=== PATIENT | female | born 2000 | race Caucasian/White ===

== ENCOUNTER 2021-03-01 08:13 | Day surgery (SDC) | payer BC ==
[2021-02-27 15:22] VITALS: BMI 24.7
[2021-03-01] MEDS ORDERED: KETAMINE HCL 500 MG/10 ML VIAL ONE (09:30)
[2021-03-01 10:34] VITALS: BP 100/60; PULSE 78; TEMP 98
== END 2021-03-01 11:00 | disposition home or self-care (01) ==
LOC: FECT 08:13
PROVIDERS: ATTEND Psychiatry & Neurology Psychiatry
PROC: GZB4ZZZ Other Electroconvulsive Therapy (ICD-10-PCS; principal; 2021-03-01 09:45)
DX: F32.9 Major depressive disorder, single episode, unspecified (principal)
CPT/HCPCS: 81025; 90870; 94760; C9803; U0003; U0005

== ENCOUNTER 2021-03-06 08:18 | Day surgery (SDC) | payer BC ==
[2021-02-27 15:52] VITALS: BMI 24.7
[2021-03-06] MEDS ORDERED: KETAMINE HCL 500 MG/10 ML VIAL ONE (09:32)
[2021-03-06 11:16] VITALS: TEMP 97.8
[2021-03-06 11:30] VITALS: BP 100/61; PULSE 76
== END 2021-03-06 11:35 | disposition home or self-care (01) ==
LOC: FECT 08:18
PROVIDERS: ATTEND Psychiatry & Neurology Psychiatry
PROC: GZB4ZZZ Other Electroconvulsive Therapy (ICD-10-PCS; principal; 2021-03-06 09:30)
DX: F32.9 Major depressive disorder, single episode, unspecified (principal)
CPT/HCPCS: 81025; 90870; 94760; C9803; U0003; U0005

== ENCOUNTER 2021-03-09 06:35 | Day surgery (SDC) | payer BC ==
[2021-03-09 07:27] VITALS: BMI 24.7
[2021-03-09] MEDS ORDERED: KETAMINE HCL 500 MG/10 ML VIAL ONE (08:24)
[2021-03-09 09:33] VITALS: TEMP 98.1
[2021-03-09 09:53] VITALS: BP 102/62; PULSE 64
== END 2021-03-09 09:55 | disposition home or self-care (01) ==
LOC: FECT 06:35
PROVIDERS: ATTEND Psychiatry & Neurology Psychiatry
PROC: GZB4ZZZ Other Electroconvulsive Therapy (ICD-10-PCS; principal; 2021-03-09 08:30)
DX: F32.9 Major depressive disorder, single episode, unspecified (principal)
CPT/HCPCS: 90870; 94760

== ENCOUNTER 2021-03-10 06:12 | Day surgery (SDC) | payer BC ==
[2021-03-09 14:08] VITALS: BMI 24.7
[2021-03-10] MEDS ORDERED: KETAMINE HCL 500 MG/10 ML VIAL ONE (07:43)
[2021-03-10 08:53] VITALS: TEMP 97.9
[2021-03-10 09:04] VITALS: BP 115/71; PULSE 83
== END 2021-03-10 09:10 | disposition home or self-care (01) ==
LOC: FECT 06:12
PROVIDERS: ATTEND Psychiatry & Neurology Psychiatry
PROC: GZB4ZZZ Other Electroconvulsive Therapy (ICD-10-PCS; principal; 2021-03-10 08:00)
DX: F32.9 Major depressive disorder, single episode, unspecified (principal)
CPT/HCPCS: 81025; 90870; 94760; C9803; U0003; U0005

== ENCOUNTER 2021-03-13 06:36 | Day surgery (SDC) | payer BC ==
[2021-03-09 15:43] VITALS: BMI 24.7
[2021-03-13 09:04] VITALS: TEMP 98
[2021-03-13 09:53] VITALS: BP 118/70; PULSE 84
== END 2021-03-13 09:55 | disposition home or self-care (01) ==
LOC: FECT 06:36
PROVIDERS: ATTEND Psychiatry & Neurology Psychiatry
PROC: GZB4ZZZ Other Electroconvulsive Therapy (ICD-10-PCS; principal; 2021-03-13 08:30)
DX: F33.2 Major depressive disorder, recurrent severe without psychotic features (principal)
CPT/HCPCS: 90870; 94760; C9803; U0003; U0005

== ENCOUNTER 2021-03-16 06:30 | Day surgery (SDC) | payer BC ==
[2021-03-15 14:43] VITALS: BMI 24.7
[2021-03-16] MEDS ORDERED: PROPOFOL 20 ML ONE (08:23)
[2021-03-16] MEDS ORDERED: SUCCINYLCHOLINE CHLORIDE 200 MG/10 ML SYRINGE ONE (08:23)
[2021-03-16] MEDS ORDERED: KETAMINE HCL 500 MG/10 ML VIAL ONE (08:24)
[2021-03-16 09:19] VITALS: TEMP 98.1
[2021-03-16 10:39] VITALS: BP 121/73; PULSE 72
== END 2021-03-16 09:45 | disposition home or self-care (01) ==
LOC: FECT 06:30
PROVIDERS: ATTEND Psychiatry & Neurology Psychiatry
PROC: GZB4ZZZ Other Electroconvulsive Therapy (ICD-10-PCS; principal; 2021-03-16 08:00)
DX: F32.9 Major depressive disorder, single episode, unspecified (principal)
CPT/HCPCS: 81025; 90870; 94760

== ENCOUNTER 2021-03-17 06:12 | Day surgery (SDC) | payer BC ==
[2021-03-16 12:03] VITALS: BMI 24.7
[2021-03-17] MEDS ORDERED: KETAMINE HCL 500 MG/10 ML VIAL ONE ×2 (07:55→07:59)
[2021-03-17 08:54] VITALS: TEMP 98.2
[2021-03-17 09:09] VITALS: BP 118/72; PULSE 68
== END 2021-03-17 09:11 | disposition home or self-care (01) ==
LOC: FECT 06:12
PROVIDERS: ATTEND Psychiatry & Neurology Psychiatry
PROC: GZB4ZZZ Other Electroconvulsive Therapy (ICD-10-PCS; principal; 2021-03-17 07:30)
DX: F32.9 Major depressive disorder, single episode, unspecified (principal)
CPT/HCPCS: 81025; 90870; 94760; C9803; U0003; U0005

== ENCOUNTER 2021-03-20 06:54 | Day surgery (SDC) | payer BC ==
[2021-03-17 08:36] VITALS: BMI 24.7
[2021-03-20] MEDS ORDERED: KETAMINE HCL 500 MG/10 ML VIAL ONE (09:08)
[2021-03-20 10:26] VITALS: TEMP 98
[2021-03-20 10:42] VITALS: BP 112/64; PULSE 79
== END 2021-03-20 10:45 | disposition home or self-care (01) ==
LOC: FECT 06:54
PROVIDERS: ATTEND Psychiatry & Neurology Psychiatry
PROC: GZB4ZZZ Other Electroconvulsive Therapy (ICD-10-PCS; principal; 2021-03-20 09:00)
DX: F32.9 Major depressive disorder, single episode, unspecified (principal)
CPT/HCPCS: 90870; 94760; C9803; U0003; U0005

== ENCOUNTER 2021-03-23 07:29 | Day surgery (SDC) | payer BC ==
[2021-03-22 08:57] VITALS: BMI 24.7
[2021-03-23] MEDS ORDERED: KETAMINE HCL 500 MG/10 ML VIAL ONE (09:40)
[2021-03-23 10:53] VITALS: TEMP 18
[2021-03-23 10:54] VITALS: BP 121/72; PULSE 72
== END 2021-03-23 10:56 | disposition home or self-care (01) ==
LOC: FECT 07:29
PROVIDERS: ATTEND Psychiatry & Neurology Psychiatry
PROC: GZB4ZZZ Other Electroconvulsive Therapy (ICD-10-PCS; principal; 2021-03-23 09:30)
DX: F32.9 Major depressive disorder, single episode, unspecified (principal)
CPT/HCPCS: 84703; 90870; 94760

== ENCOUNTER 2021-03-24 06:43 | Day surgery (SDC) | payer BC ==
[2021-03-22 15:47] VITALS: BMI 24.7
[2021-03-24] MEDS ORDERED: KETAMINE HCL 500 MG/10 ML VIAL ONE (07:29)
[2021-03-24] MEDS ORDERED: SUCCINYLCHOLINE CHLORIDE 200 MG/10 ML SYRINGE ONE (07:34)
[2021-03-24] MEDS ORDERED: PROPOFOL 20 ML ONE (07:34)
[2021-03-24 08:24] VITALS: TEMP 97.9
[2021-03-24 08:47] VITALS: BP 110/74; PULSE 78
== END 2021-03-24 09:19 | disposition home or self-care (01) ==
LOC: FECT 06:43
PROVIDERS: ATTEND Psychiatry & Neurology Psychiatry
PROC: GZB4ZZZ Other Electroconvulsive Therapy (ICD-10-PCS; principal; 2021-03-24 07:30)
DX: F32.9 Major depressive disorder, single episode, unspecified (principal)
CPT/HCPCS: 90870; 94760; C9803; U0003; U0005

== ENCOUNTER 2021-03-27 06:50 | Day surgery (SDC) | payer BC ==
[2021-03-22 15:51] VITALS: BMI 24.7
[2021-03-27] MEDS ORDERED: KETAMINE HCL 200 MG/20 ML VIAL ONE (08:29)
[2021-03-27 09:21] VITALS: TEMP 98.2
[2021-03-27 09:39] VITALS: BP 118/66; PULSE 64
== END 2021-03-27 09:40 | disposition home or self-care (01) ==
LOC: FECT 06:50
PROVIDERS: ATTEND Psychiatry & Neurology Psychiatry
PROC: GZB4ZZZ Other Electroconvulsive Therapy (ICD-10-PCS; principal; 2021-03-27 08:30)
DX: F33.2 Major depressive disorder, recurrent severe without psychotic features (principal)
CPT/HCPCS: 81025; 90870; 94760

== ENCOUNTER 2021-03-29 06:14 | Day surgery (SDC) | payer BC ==
[2021-03-27 11:32] VITALS: BMI 24.7
[2021-03-29] MEDS ORDERED: PROPOFOL 20 ML ONE (08:09)
[2021-03-29] MEDS ORDERED: SUCCINYLCHOLINE CHLORIDE 200 MG/10 ML SYRINGE ONE (08:09)
[2021-03-29] MEDS ORDERED: KETAMINE HCL 200 MG/20 ML VIAL ONE (08:10)
[2021-03-29 08:31] VITALS: TEMP 97
[2021-03-29 09:12] VITALS: BP 110/77; PULSE 61
== END 2021-03-29 09:15 | disposition home or self-care (01) ==
LOC: FECT 06:14
PROVIDERS: ATTEND Psychiatry & Neurology Psychiatry
PROC: GZB4ZZZ Other Electroconvulsive Therapy (ICD-10-PCS; principal; 2021-03-29 08:00)
DX: F32.9 Major depressive disorder, single episode, unspecified (principal)
CPT/HCPCS: 90870; 94760; C9803; U0003; U0005

== ENCOUNTER 2021-04-03 06:57 | Day surgery (SDC) | payer BC ==
[2021-03-27 12:12] VITALS: BMI 24.7
[2021-04-03] MEDS ORDERED: KETAMINE HCL 500 MG/10 ML VIAL ONE (08:54)
[2021-04-03 10:02] VITALS: TEMP 97.8
[2021-04-03 10:54] VITALS: BP 112/61; PULSE 81
== END 2021-04-03 10:25 | disposition home or self-care (01) ==
LOC: FECT 06:57
PROVIDERS: ATTEND Psychiatry & Neurology Psychiatry
PROC: GZB4ZZZ Other Electroconvulsive Therapy (ICD-10-PCS; principal; 2021-04-03 09:00)
DX: F33.2 Major depressive disorder, recurrent severe without psychotic features (principal)
CPT/HCPCS: 81025; 90870; 94760; C9803; U0003; U0005

== ENCOUNTER 2021-04-06 06:09 | Day surgery (SDC) | payer BC ==
[2021-03-29 10:06] VITALS: BMI 24.7
[2021-04-06] MEDS ORDERED: KETOROLAC TROMETHAMINE 30 MG/1 ML VIAL ONE (08:03)
[2021-04-06] MEDS ORDERED: DEXAMETHASONE SOD PHOSPHATE 4 MG/1 ML VIAL ONE (08:03)
[2021-04-06] MEDS ORDERED: ONDANSETRON 4 MG/2 ML VIAL ONE (08:03)
[2021-04-06] MEDS ORDERED: KETAMINE HCL 500 MG/10 ML VIAL ONE (08:04)
[2021-04-06] MEDS ORDERED: PROPOFOL 20 ML ONE (08:04)
[2021-04-06] MEDS ORDERED: SUCCINYLCHOLINE CHLORIDE 200 MG/10 ML SYRINGE ONE (08:20)
[2021-04-06 08:48] VITALS: TEMP 98.1
[2021-04-06 09:34] VITALS: BP 112/66; PULSE 68
[2021-04-07 21:06] LABS: SARS-CoV-2 NAA Not Detected (Not Detected)
== END 2021-04-06 09:35 | disposition home or self-care (01) ==
LOC: FECT 06:09
PROVIDERS: ATTEND Psychiatry & Neurology Psychiatry
PROC: GZB4ZZZ Other Electroconvulsive Therapy (ICD-10-PCS; principal; 2021-04-06 08:00)
DX: F32.9 Major depressive disorder, single episode, unspecified (principal)
CPT/HCPCS: 90870; 94760; C9803; U0003; U0005

== ENCOUNTER 2021-04-10 05:57 | Day surgery (SDC) | payer BC ==
[2021-04-03 15:34] VITALS: BMI 24.7
[2021-04-10] MEDS ORDERED: KETAMINE HCL 200 MG/20 ML VIAL ONE (08:48)
[2021-04-10 09:51] VITALS: TEMP 97.3
[2021-04-10 09:52] VITALS: BP 112/71; PULSE 75
[2021-04-11 14:13] LABS: SARS-CoV-2 NAA Not Detected (Not Detected)
== END 2021-04-10 09:54 | disposition home or self-care (01) ==
LOC: FECT 05:57
PROVIDERS: ATTEND Psychiatry & Neurology Psychiatry
PROC: GZB4ZZZ Other Electroconvulsive Therapy (ICD-10-PCS; principal; 2021-04-10 08:00)
DX: F32.9 Major depressive disorder, single episode, unspecified (principal)
CPT/HCPCS: 81025; 90870; 94760; C9803; U0003; U0005

== ENCOUNTER 2021-04-13 06:27 | Day surgery (SDC) | payer BC ==
[2021-04-10 16:26] VITALS: BMI 24.7
[2021-04-13] MEDS ORDERED: KETAMINE HCL 500 MG/10 ML VIAL ONE (08:09)
[2021-04-13 09:10] VITALS: TEMP 98
[2021-04-13 09:31] VITALS: BP 101/69; PULSE 84
== END 2021-04-13 09:30 | disposition home or self-care (01) ==
LOC: FECT 06:27
PROVIDERS: ATTEND Psychiatry & Neurology Psychiatry
PROC: GZB4ZZZ Other Electroconvulsive Therapy (ICD-10-PCS; principal; 2021-04-13 08:30)
DX: F32.9 Major depressive disorder, single episode, unspecified (principal)
CPT/HCPCS: 90870; 94760

== ENCOUNTER 2021-04-17 06:25 | Day surgery (SDC) | payer BC ==
[2021-04-14 07:56] VITALS: BMI 24.7
[2021-04-17] MEDS ORDERED: KETAMINE HCL 500 MG/10 ML VIAL ONE (08:07)
[2021-04-17 09:14] VITALS: BP 109/66; PULSE 92; TEMP 20
[2021-04-18 14:08] LABS: SARS-CoV-2 NAA Not Detected (Not Detected)
== END 2021-04-17 09:30 | disposition home or self-care (01) ==
LOC: FECT 06:25
PROVIDERS: ATTEND Psychiatry & Neurology Psychiatry
PROC: GZB4ZZZ Other Electroconvulsive Therapy (ICD-10-PCS; principal; 2021-04-17 08:30)
DX: F33.2 Major depressive disorder, recurrent severe without psychotic features (principal)
CPT/HCPCS: 81025; 90870; 94760; C9803-CS; U0003; U0005

== ENCOUNTER 2021-04-20 06:25 | Day surgery (SDC) | payer BC ==
[2021-04-14 07:59] VITALS: BMI 24.7
[2021-04-20] MEDS ORDERED: KETAMINE HCL 200 MG/20 ML VIAL ONE (08:02)
[2021-04-20 08:59] VITALS: TEMP 97.8
[2021-04-20 09:22] VITALS: BP 112/64; PULSE 70
== END 2021-04-20 09:24 | disposition home or self-care (01) ==
LOC: FECT 06:25
PROVIDERS: ATTEND Psychiatry & Neurology Psychiatry
PROC: GZB4ZZZ Other Electroconvulsive Therapy (ICD-10-PCS; principal; 2021-04-20 08:30)
DX: F32.9 Major depressive disorder, single episode, unspecified (principal)
CPT/HCPCS: 90870; 94760

== ENCOUNTER 2021-04-21 05:51 | Day surgery (SDC) | payer BC ==
[2021-04-14 08:02] VITALS: BMI 24.7
[2021-04-21] MEDS ORDERED: KETAMINE HCL 500 MG/10 ML VIAL ONE (07:47)
[2021-04-21] MEDS ORDERED: GLYCOPYRROLATE 0.2 MG/1 ML VIAL ONE (07:58)
[2021-04-21 08:57] VITALS: TEMP 97.2
[2021-04-21 09:10] VITALS: BP 113/65; PULSE 81
[2021-04-21] MEDS ORDERED: PROMETHAZINE HCL 25 MG/1 ML VIAL IVPUSH PRN (09:55)
[2021-04-21] MEDS ORDERED: ONDANSETRON 4 MG/2 ML VIAL IVPUSH PRN (09:55)
[2021-04-21] MEDS ORDERED: ACETAMINOPHEN 325 MG TABLET (FP) PO PRN (09:55)
[2021-04-21] MEDS ORDERED: LACTATED RINGERS SOLUTION 1,000 ML IV SCH (10:00)
[2021-04-22 16:08] LABS: SARS-CoV-2 NAA Not Detected (Not Detected)
== END 2021-04-21 09:15 | disposition home or self-care (01) ==
LOC: FECT 05:51
PROVIDERS: ATTEND Psychiatry & Neurology Psychiatry
PROC: GZB4ZZZ Other Electroconvulsive Therapy (ICD-10-PCS; principal; 2021-04-21 08:00)
DX: F32.9 Major depressive disorder, single episode, unspecified (principal)
CPT/HCPCS: 81025; 90870; 94760; C9803; U0003; U0005

== ENCOUNTER 2021-04-25 06:24 | Day surgery (SDC) | payer BC ==
[2021-04-19 08:35] VITALS: BMI 24.7
[2021-04-25] MEDS ORDERED: KETAMINE HCL 500 MG/10 ML VIAL ONE (08:03)
[2021-04-25 08:45] VITALS: TEMP 97.5
[2021-04-25 09:25] VITALS: BP 118/69; PULSE 85
[2021-04-26 11:08] LABS: SARS-CoV-2 NAA Not Detected (Not Detected)
== END 2021-04-25 09:26 | disposition home or self-care (01) ==
LOC: FECT 06:24
PROVIDERS: ATTEND Psychiatry & Neurology Psychiatry
PROC: GZB4ZZZ Other Electroconvulsive Therapy (ICD-10-PCS; principal; 2021-04-25 08:00)
DX: F33.2 Major depressive disorder, recurrent severe without psychotic features (principal)
CPT/HCPCS: 81025; 90870; 94760; C9803; U0003; U0005

== ENCOUNTER 2021-04-28 06:00 | Day surgery (SDC) | payer BC ==
[2021-04-25 17:14] VITALS: BMI 24.7
[2021-04-28] MEDS ORDERED: KETAMINE HCL 500 MG/10 ML VIAL ONE (07:25)
[2021-04-28 07:56] VITALS: TEMP 97.8
[2021-04-28 09:00] VITALS: BP 112/64; PULSE 72
== END 2021-04-28 09:04 | disposition home or self-care (01) ==
LOC: FECT 06:00
PROVIDERS: ATTEND Psychiatry & Neurology Psychiatry
PROC: GZB4ZZZ Other Electroconvulsive Therapy (ICD-10-PCS; principal; 2021-04-28 08:00)
DX: F33.2 Major depressive disorder, recurrent severe without psychotic features (principal)
CPT/HCPCS: 90870; 94760

== ENCOUNTER 2021-05-04 06:03 | Day surgery (SDC) | payer BC ==
[2021-05-01 14:44] VITALS: BMI 24.7
[2021-05-04] MEDS ORDERED: KETAMINE HCL 500 MG/10 ML VIAL ONE (07:30)
[2021-05-04 07:58] VITALS: TEMP 97.5
[2021-05-04 08:35] VITALS: BP 105/60; PULSE 87
== END 2021-05-04 08:45 | disposition home or self-care (01) ==
LOC: FECT 06:03
PROVIDERS: ATTEND Psychiatry & Neurology Psychiatry
PROC: GZB4ZZZ Other Electroconvulsive Therapy (ICD-10-PCS; principal; 2021-05-04 07:30)
DX: F32.9 Major depressive disorder, single episode, unspecified (principal)
CPT/HCPCS: 81025; 90870; 94760

== ENCOUNTER 2021-05-11 06:12 | Day surgery (SDC) | payer BC ==
[2021-04-14 07:53] VITALS: BMI 24.7
[2021-05-11 09:07] VITALS: TEMP 97.9
[2021-05-11 09:37] VITALS: BP 111/67; PULSE 81
== END 2021-05-11 09:25 | disposition home or self-care (01) ==
LOC: FECT 06:12
PROVIDERS: ATTEND Psychiatry & Neurology Psychiatry
PROC: GZB4ZZZ Other Electroconvulsive Therapy (ICD-10-PCS; principal; 2021-05-11 08:00)
DX: F32.9 Major depressive disorder, single episode, unspecified (principal)
CPT/HCPCS: 81025; 90870; 94760

== ENCOUNTER 2021-05-18 06:08 | Day surgery (SDC) | payer BC ==
[2021-05-16 16:33] VITALS: BMI 24.7
[2021-05-18] MEDS ORDERED: KETAMINE HCL 500 MG/10 ML VIAL ONE (07:17)
[2021-05-18 08:12] VITALS: BP 110/67; PULSE 86; TEMP 97
== END 2021-05-18 08:25 | disposition home or self-care (01) ==
LOC: FECT 06:08
PROVIDERS: ATTEND Psychiatry & Neurology Psychiatry
PROC: GZB4ZZZ Other Electroconvulsive Therapy (ICD-10-PCS; principal; 2021-05-18 07:30)
DX: F32.9 Major depressive disorder, single episode, unspecified (principal)
CPT/HCPCS: 81025; 90870; 94760

== ENCOUNTER 2021-05-25 08:02 | Day surgery (SDC) | payer BC ==
[2021-05-23 08:17] VITALS: BMI 24.7
[2021-05-25] MEDS ORDERED: KETAMINE HCL 500 MG/10 ML VIAL ONE (09:18)
[2021-05-25 12:18] VITALS: PULSE 82; TEMP 97.8
[2021-05-25 12:20] VITALS: BP 120/70
== END 2021-05-25 10:30 | disposition home or self-care (01) ==
LOC: FECT 08:02
PROVIDERS: ATTEND Psychiatry & Neurology Psychiatry
PROC: GZB4ZZZ Other Electroconvulsive Therapy (ICD-10-PCS; principal; 2021-05-25 09:30)
DX: F32.9 Major depressive disorder, single episode, unspecified (principal)
CPT/HCPCS: 84703; 90870; 94760

== ENCOUNTER 2021-06-01 05:50 | Day surgery (SDC) | payer BC ==
[2021-05-26 17:14] VITALS: BMI 24.7
[2021-06-01] MEDS ORDERED: KETAMINE HCL 500 MG/10 ML VIAL ONE (07:27)
[2021-06-01 08:43] VITALS: TEMP 97.8
[2021-06-01 08:47] VITALS: BP 110/61; PULSE 71
== END 2021-06-01 08:45 | disposition home or self-care (01) ==
LOC: FASU 05:50
PROVIDERS: ATTEND Psychiatry & Neurology Psychiatry
PROC: GZB4ZZZ Other Electroconvulsive Therapy (ICD-10-PCS; principal; 2021-06-01 07:41)
DX: F33.2 Major depressive disorder, recurrent severe without psychotic features (principal)
CPT/HCPCS: 81025; 90870; 94760

== ENCOUNTER 2021-06-15 06:30 | Day surgery (SDC) | payer BC ==
[2021-06-02 17:18] VITALS: BMI 24.7
[2021-06-15] MEDS ORDERED: KETAMINE HCL 500 MG/10 ML VIAL ONE (07:53)
[2021-06-15 09:25] VITALS: TEMP 98.7
[2021-06-15 09:27] VITALS: BP 110/55; PULSE 75
== END 2021-06-15 09:25 | disposition home or self-care (01) ==
LOC: FECT 06:30
PROVIDERS: ATTEND Psychiatry & Neurology Psychiatry
PROC: GZB4ZZZ Other Electroconvulsive Therapy (ICD-10-PCS; principal; 2021-06-15 08:25)
DX: F32.9 Major depressive disorder, single episode, unspecified (principal)
CPT/HCPCS: 81025; 90870; 94760

== ENCOUNTER 2021-06-22 06:05 | Day surgery (SDC) | payer BC ==
[2021-06-16 07:30] VITALS: BMI 24.7
[2021-06-22] MEDS ORDERED: KETAMINE HCL 200 MG/20 ML VIAL ONE (08:00)
[2021-06-22 08:55] VITALS: TEMP 97.8
[2021-06-22 09:19] VITALS: BP 116/68; PULSE 70
== END 2021-06-22 09:19 | disposition home or self-care (01) ==
LOC: FECT 06:05
PROVIDERS: ATTEND Psychiatry & Neurology Psychiatry
PROC: GZB4ZZZ Other Electroconvulsive Therapy (ICD-10-PCS; principal; 2021-06-22 08:09)
DX: F32.9 Major depressive disorder, single episode, unspecified (principal)
CPT/HCPCS: 81025; 90870; 94760

== ENCOUNTER 2021-07-03 10:04 | Day surgery (SDC) | payer BC ==
[2021-06-26 18:11] VITALS: BMI 24.7
[2021-07-03] MEDS ORDERED: KETAMINE HCL 500 MG/10 ML VIAL ONE (11:01)
[2021-07-03 13:01] VITALS: BP 120/63; PULSE 68; TEMP 97.5
== END 2021-07-03 12:40 | disposition home or self-care (01) ==
LOC: FECT 10:04
PROVIDERS: ATTEND Psychiatry & Neurology Psychiatry
PROC: GZB4ZZZ Other Electroconvulsive Therapy (ICD-10-PCS; principal; 2021-07-03 11:33)
DX: F33.2 Major depressive disorder, recurrent severe without psychotic features (principal)
CPT/HCPCS: 84703; 90870; 94760

== ENCOUNTER 2021-07-13 06:09 | Day surgery (SDC) | payer BC ==
[2021-07-13 06:50] VITALS: BMI 24.7
[2021-07-13] MEDS ORDERED: KETAMINE HCL 500 MG/10 ML VIAL ONE (07:35)
[2021-07-13 08:49] VITALS: BP 122/74; PULSE 62; TEMP 98.6
== END 2021-07-13 08:52 | disposition home or self-care (01) ==
LOC: FECT 06:09
PROVIDERS: ATTEND Psychiatry & Neurology Psychiatry
PROC: GZB4ZZZ Other Electroconvulsive Therapy (ICD-10-PCS; principal; 2021-07-13 07:45)
DX: F32.9 Major depressive disorder, single episode, unspecified (principal)
CPT/HCPCS: 81025; 90870; 94760

== ENCOUNTER 2021-07-27 06:27 | Day surgery (SDC) | payer BC ==
[2021-07-25 16:55] VITALS: BMI 24.7
[2021-07-27 07:10] VITALS: TEMP 98.6
[2021-07-27] MEDS ORDERED: KETAMINE HCL 500 MG/10 ML VIAL ONE (08:13)
[2021-07-27 09:31] VITALS: BP 125/84; PULSE 89
== END 2021-07-27 09:35 | disposition home or self-care (01) ==
LOC: FECT 06:27
PROVIDERS: ATTEND Psychiatry & Neurology Psychiatry
PROC: GZB4ZZZ Other Electroconvulsive Therapy (ICD-10-PCS; principal; 2021-07-27 08:26)
DX: F32.9 Major depressive disorder, single episode, unspecified (principal)
CPT/HCPCS: 81025; 90870; 94760